=== PATIENT | male | born 1985 | race African-American/Black ===

== ENCOUNTER 2017-10-24 15:46 | Emergency (ER) | payer SELFPAY ==
[2017-10-24] MEDS ORDERED: ACETAMINOPHEN 325 MG TABLET PO ONE (16:25)
--- NOTE | 2017-10-24 16:29 | ER Document Report ---
HPI - HPI Patient complains to provider of: fever, sore throat, body aches, ear pain, fatigue, loose stool Onset: Other Onset/Duration: Persistent Quality of pain: Achy Pain Level: 4 Context: Patient presents emergency department with complaints of fever 48 hours ago sore throat left ear pain loose stool and fatigue. Patient reports symptoms started on . He had a fever of 101. He took some Tylenol liquid medication which seemed to dry mouth. He denies nausea vomiting reports loose stools. Denies productive cough. Reports body aches decreased appetite. Patient did not receive a flu shot this year. Patient has not taken anything today for his pain. Reports he works at [employer] but his and child are staying with his in-laws for now. Associated Symptoms: Fever, Headache, Sore throat Exacerbated by: Denies Relieved by: Denies Similar symptoms previously: No Recently seen / treated by doctor: No Past Medical History - General Information source: Patient - Social History Smoking Status: Current Every Day Smoker Cigarette use (# per day): Yes Chew tobacco use (# tins/day): No Frequency of alcohol use: None Drug Abuse: None Occupation: [employer] Lives with: Family Family History: Reviewed & Not Pertinent, Other - Both parents still living. No early heart disease Patient has suicidal ideation: No Patient has homicidal ideation: No - Medical History Medical History: Negative - Past Medical History Cardiac Medical History: Denies: Hx Hypercholesterolemia, Hx Hypertension Pulmonary Medical History: Denies: Hx Asthma Psychiatric Medical History: Reports: Hx Anxiety - Apparent history of panic. Does not see anybody for Surgical Hx: Negative Vertical Provider Document - CONSTITUTIONAL Agree With Documented VS: Yes Exam Limitations: No Limitations General Appearance: WD/WN, No Apparent Distress - INFECTION CONTROL TRAVEL OUTSIDE OF THE [place] IN LAST 30 DAYS: No - HEENT HEENT: Atraumatic, Normocephalic, Pharyngeal Exudate, Pharyngeal Erythema - clear voice, opens mouth wide. negative: Tympanic Membrane Red, Tympanic Membrane Bulging - NECK Neck: Normal Inspection, Supple. negative: Lymphadenopathy-Left, Lymphadenopathy-Right - RESPIRATORY Respiratory: Breath Sounds Normal, No Respiratory Distress O2 Sat by Pulse Oximetry: 97 - CARDIOVASCULAR Cardiovascular: Regular Rate - GI/ABDOMEN Gastrointestinal: Abdomen Soft, Abdomen Non-Tender - BACK Back: Normal Inspection - MUSCULOSKELETAL/EXTREMETIES Musculoskeletal/Extremeties: MAEW, FROM - NEURO Level of Consciousness: Awake, Alert, Appropriate Motor/Sensory: No Motor Deficit - DERM Integumentary: Warm, Dry, No Rash Course - Re-evaluation Re-evalutation: 10/24/17 17:12 Patient instructed on negative strep. throat culture pending Patient will be treated with Pen-Vee K for tonsil exudate. He was also instructed on importance of pushing fluids good handwashing follow-up with primary care provider. Patient is nontoxic looking swallowing drinking p.o. fluids without any problems and answers in a clear voice - Vital Signs Vital signs: Temp Pulse Resp BP Pulse Ox 98.8 F 78 20 119/84 97 10/24/17 15:52 10/24/17 15:52 10/24/17 15:52 10/24/17 15:52 10/24/17 15:52 Discharge - Discharge Clinical Impression: Sore throat, Flu-like symptoms, Tonsillar exudate Condition: Stable Disposition: HOME, SELF-CARE Instructions: Acetaminophen, Penicillin V K ([facility]) Additional Instructions: *You have been evaluated for a sore throat, tonsillar exudate, flu like symptoms *Take medication as prescribed *Warm salt water gargles and throat lozenges for comfort *Change toothbrush after two days of antibiotics *Do not let anyone drink/eat after you *Good hand washing *Follow-up with a primary care provider within one week for recheck *Return to ED for worsening condition change, needs Prescriptions: Penicillin V Potassium [Penicillin Vk 500 mg Tablet] 500 mg PO BID #20 tablet Forms: Return to Work
[2017-10-24 17:27] VITALS: BP 126/78
== END 2017-10-24 17:25 | disposition home or self-care (01) ==
LOC: ER 15:46
DX: J02.9 Acute pharyngitis, unspecified (principal); R50.9 Fever, unspecified; H92.02 Otalgia, left ear; R53.83 Other fatigue; R19.4 Change in bowel habit; R63.0 Anorexia; R51 Headache; F17.210 Nicotine dependence, cigarettes, uncomplicated
CPT/HCPCS: 87070; 87077; 87880; 99283

== ENCOUNTER 2018-07-20 18:09 | Emergency (ER) | payer SELFPAY ==
[2018-07-20] MEDS ORDERED: LIDOCAINE 2% VISCOUS SOLN 20 ML UDCUP PO ONE (19:00)
[2018-07-20] MEDS ORDERED: DEXAMETHASONE CONC 1 MG/ML SOLN PO ONE (19:00)
--- NOTE | 2018-07-20 19:05 | ER Document Report ---
ED General - General Chief Complaint: Diarrhea Stated Complaint: FATIGUE, SORE THROAT, TROUBLE URINATING Time Seen by Provider: 07/20/18 18:54 Notes: Patient is a 33-year-old male that presents to the emergency department for chief complaint of sore throat and diarrhea. Patient states she has been having sore throat and painful swallowing over the last 3 days, has had associated loose stools and diarrhea, no blood in the stool. He had no nausea or vomiting. He states his been difficult to stay hydrated. He noted also that he had difficulty starting a stream of urine, but did not note any burning or blood in the urine or penile discharge. He reports previously to this he was rather healthy, denies taking any home medications. He did note a slight temperature at home, but does not recall the number. He states his has had some similar symptoms, he is also had an associated cough. Past Medical History: Denies chronic medical conditions Past Surgical History: Denies surgical history Social History: Admits to smoking cigarettes, denies alcohol or drug use Family History: Reviewed and noncontributory for presenting illness Allergies: Reviewed, see documented allergy list. REVIEW OF SYSTEMS: Unless otherwise stated in this report the patient's positive and negative responses for review of systems for constitutional, eyes, ENT, cardiovascular, respiratory, gastrointestinal, neurological, genitourinary, musculoskeletal, and integumentary systems and related systems to the presenting problem are either as stated in the HPI or were not pertinent or were negative for the symptoms and/or complaints related to the presenting medical problem. PHYSICAL EXAMINATION: Vital signs reviewed, nursing noted reviewed. GENERAL: Well-appearing, well-nourished and in no acute distress. HEAD: Atraumatic, normocephalic. EYES: Eyes appear normal, extraocular movements intact, sclera anicteric, conjunctiva are normal. ENT: nares patent, mucous membranes are moist, mild erythema of the posterior pharynx, normal-appearing tonsils, no exudates NECK: Normal range of motion, supple without lymphadenopathy LUNGS: Breath sounds clear to auscultation bilaterally and equal. No wheezes rales or rhonchi. HEART: Regular rate and rhythm without murmurs ABDOMEN: Soft, nontender, normoactive bowel sounds. No rebound, guarding, or rigidity. No masses appreciated. EXTREMITIES: Nontender, good range of motion, no pitting or edema. NEUROLOGICAL: No focal neurological deficits. Moves all extremities spontaneously Motor and sensory grossly intact on exam. PSYCH: Normal mood, normal affect. SKIN: Warm, Dry, normal turgor, no rashes or lesions noted on exposed skin TRAVEL OUTSIDE OF THE [place] IN LAST 30 DAYS: No - Related Data Allergies/Adverse Reactions: No Known Allergies Allergy (Verified 07/20/18 18:10) Past Medical History - Social History Smoking Status: Current Every Day Smoker Chew tobacco use (# tins/day): No Drug Abuse: None Family History: Reviewed & Not Pertinent, Other - Both parents still living. No early heart disease Patient has suicidal ideation: No Patient has homicidal ideation: No - Past Medical History Cardiac Medical History: Denies: Hx Hypercholesterolemia, Hx Hypertension Pulmonary Medical History: Denies: Hx Asthma Renal/ Medical History: Denies: Hx Peritoneal Dialysis Psychiatric Medical History: Reports: Hx Anxiety - Apparent history of panic. Does not see anybody for Physical Exam - Vital signs Vitals: Temp Pulse Resp BP Pulse Ox 98.6 F 90 14 134/78 H 97 07/20/18 18:32 07/20/18 18:32 07/20/18 18:32 07/20/18 18:32 07/20/18 18:32 Course - Re-evaluation Re-evalutation: Patient seen and examined vital signs reviewed. Laboratory data and imaging were ordered as appropriate for the patient's presenting symptoms and complaint, with consideration of any critical or life threatening conditions that may be associated with their obtained history and exam as noted above. Patient was treated with p.o. Decadron, and viscous lidocaine gargle and swallow Results were reviewed when available and demonstrated urinalysis did demonstrate leukocyte esterase, in the urine, and rapid strep was negative The patient was re-evaluated and was improved and stable Evaluation was most consistent with acute pharyngitis, urinary tract infection will place the patient on Keflex for 7 days, advised to follow-up with urology given that he is a male with what looks like a urinary tract infection, and advised we will follow-up on results for strep culture. Patient agreeable and discharged. Results were discussed with the patient at this point, after careful consideration I feel that that patient can be discharged from the emergency department, the patient was educated treatments and reasons to return to the emergency department based on their presumed diagnosis as noted above, they were advised to followup with a primary care physician in 2-3 days. Patient was agreeable to plan of care. *Note is created using voice recognition software and may contain spelling, syntax or grammatical errors. Laboratory 07/20/18 07/20/18 19:01 19:01 Urine Color [place]A Urine Appearance SLIGHTLY-CLOUDY Urine pH 6.0 Ur Specific [place] 1.029 Urine Protein 100 H Urine Glucose (UA) NEGATIVE Urine Ketones TRACE H Urine Blood NEGATIVE Urine Nitrite NEGATIVE Urine Bilirubin NEGATIVE Urine Urobilinogen 4.0 H Ur Leukocyte Esterase MODERATE H Urine WBC (Auto) 65 Urine RBC (Auto) 1 Squamous Epi Cells Auto <1 Urine Mucus (Auto) MANY Urine Ascorbic Acid 40 H Group A Strep Rapid NEGATIVE - Vital Signs Vital signs: Temp Pulse Resp BP Pulse Ox 98.0 F 74 14 133/81 H 99 07/20/18 20:52 07/20/18 20:52 07/20/18 18:32 07/20/18 20:52 07/20/18 20:52 - Laboratory Laboratory results interpreted by me: 07/20/18 19:01 Urine Protein 100 H Urine Ketones TRACE H Urine Urobilinogen 4.0 H Ur Leukocyte Esterase MODERATE H Urine Ascorbic Acid 40 H Discharge - Discharge Clinical Impression: Pharyngitis Qualifiers: Pharyngitis/tonsillitis etiology: unspecified etiology Qualified Code(s): J02.9 - Acute pharyngitis, unspecified UTI (urinary tract infection) Qualifiers: Urinary tract infection type: site unspecified Hematuria presence: without hematuria Qualified Code(s): N39.0 - Urinary tract infection, site not specified Condition: Stable Disposition: HOME, SELF-CARE Instructions: Cephalexin ([facility]), Urinary Tract Infection ([facility]) Additional Instructions: Please return to the emergency department if you have any worsening, or concern of your symptoms. Please return to the emergency department if you develop chest pain, difficulty breathing, severe abdominal pain, or ongoing vomiting. Please follow-up with your primary care physician in 2-3 days and any other recommended physicians. If prescribed, take all medications as directed. If you have any questions or concerns do not hesitate to return the emergency department for evaluation. Prescriptions: Cephalexin Monohydrate [Keflex 500 mg Capsule] 500 mg PO BID 5 Days #14 capsule Referrals: MEG CLEMENT MD [NO LOCAL MD] - Follow up in 3-5 days (urology) JERAMY KESSLER MD [ACTIVE STAFF] - Follow up in 3-5 days (or your primary care. )
[2018-07-20 19:32] LABS: APPEARANCE,URINE SLIGHTLY-CLOUDY; BILIRUBIN,URINE NEGATIVE (NEGATIVE); COLOR,URINE AMBER; GLUCOSE, URINE NEGATIVE (NEGATIVE); KETONES,URINE TRACE mg/dL (NEGATIVE); LEUKOCYTE ESTERASE,URINE MODERATE (NEGATIVE); NITRITE,URINE NEGATIVE (NEGATIVE); PROTEIN,URINE 100 mg/dL (NEGATIVE); URINE SPECIFIC GRAVITY 1.029
[2018-07-20 20:57] VITALS: BP 133/81
== END 2018-07-20 20:52 | disposition home or self-care (01) ==
LOC: ER 18:09
DX: J02.9 Acute pharyngitis, unspecified (principal); N39.0 Urinary tract infection, site not specified; R19.7 Diarrhea, unspecified; F17.210 Nicotine dependence, cigarettes, uncomplicated; R05 Cough
CPT/HCPCS: 99284; 87070; 87880; 87077; 81001; J3490; J8540

== ENCOUNTER 2019-04-27 12:17 | Emergency (ER) | payer SELFPAY ==
[2019-04-27] MEDS ORDERED: NORMAL SALINE 1000 ML 1,000 ML IV ONE ×2 (12:52→13:30)
[2019-04-27 13:03] LABS: ABSOLUTE LYMPHOCYTES (AUTO) 0.8 10^3/uL (0.5-4.7); ABSOLUTE MONOCYTES (AUTO) 0.8 10^3/uL (0.1-1.4); ABSOLUTE NEUT (AUTO) 6.4 10^3/uL (1.7-8.2); BASOPHILS % (AUTO) 0.4 % (0-2); EOSINOPHILS % (AUTO) 0.1 % (0-6); HEMATOCRIT 38.6 % (37.9-51.0); HEMOGLOBIN 13.2 g/dL (13.5-17.0); LYMPHOCYTES % (AUTO) 9.6 % (13-45); MEAN CORPUSCULAR HEMOGLOBIN 30.3 pg (27.0-33.4); MEAN CORPUSCULAR HGB CONC 34.2 g/dL (32.0-36.0); MEAN CORPUSCULAR VOLUME 89 fl (80-97); MONOCYTES % (AUTO) 9.9 % (3-13); PLATELET COUNT 197 10^3/uL (150-450); RED BLOOD COUNT 4.35 10^6/uL (4.35-5.55); RED CELL DISTRIBUTION WIDTH 13.6 % (11.5-14.0); TOTAL CELLS COUNTED % (AUTO) 100 %; WHITE BLOOD COUNT 8.1 10^3/uL (4.0-10.5)
[2019-04-27 13:14] LABS: APPEARANCE,URINE CLEAR; BILIRUBIN,URINE NEGATIVE (NEGATIVE); COLOR,URINE YELLOW; GLUCOSE, URINE NEGATIVE (NEGATIVE); KETONES,URINE 80 mg/dL (NEGATIVE); LEUKOCYTE ESTERASE,URINE NEGATIVE (NEGATIVE); NITRITE,URINE NEGATIVE (NEGATIVE); PROTEIN,URINE 100 mg/dL (NEGATIVE); URINE SPECIFIC GRAVITY 1.025
[2019-04-27 13:24] LABS: ACETAMINOPHEN < 10 ug/mL (10-30); ALANINE AMINOTRANSFERASE 25 U/L (21-72); ALCOHOL < 10 mg/dL (NONE DETECTED); ALKALINE PHOSPHATASE 75 U/L (38-126); ANION GAP 7 (5-19); ASPARTATE AMINO TRANSFERASE 34 U/L (17-59); BILIRUBIN,DIRECT 0.3 mg/dL (0.0-0.4); BILIRUBIN,TOTAL 0.7 mg/dL (0.2-1.3); BLOOD UREA NITROGEN 13 mg/dL (7-20); CALCIUM 9.7 mg/dL (8.4-10.2); CARBON DIOXIDE 24 mmol/L (22-30); CHLORIDE 110 mmol/L (98-107); CREATINE KINASE 754 U/L (55-170); GLUCOSE 93 mg/dL (75-110); POTASSIUM 3.8 mmol/L (3.6-5.0); SALICYLATE < 1.0 mg/dL (2.0-20.0); TOTAL PROTEIN 7.1 g/dL (6.3-8.2)
[2019-04-27 13:28] LABS: URINE AMPHETAMINES SCREEN NEGATIVE; URINE BARBITURATES SCREEN NEGATIVE; URINE BENZODIAZEPINES SCREEN NEGATIVE; URINE COCAINE SCREEN NEGATIVE; URINE MARIJUANA (THC) SCREEN UNCONFIRMED POSITIVE; URINE METHADONE SCREEN NEGATIVE; URINE PHENCYCLIDINE SCREEN NEGATIVE
--- NOTE | 2019-04-27 13:29 | ER Document Report ---
Entered by SIMBA GIRON SCRIBE 04/27/19 1251 Acting as scribe for:SASHA PAUL MD ED General <ROSHAN PEPPER - Last Filed: 04/27/19 16:40> - General Mode of Arrival: Medic Information source: Patient, Emergency Med Personnel, H Records TRAVEL OUTSIDE OF THE [place] IN LAST 30 DAYS: No <SASHA PAUL - Last Filed: 04/27/19 17:00> - General Chief Complaint: Psych Problem Stated Complaint: POSSIBLE SYNCOPE Time Seen by Provider: 04/27/19 12:42 Primary Care Provider: [facility] [Outside] - Follow up as needed Notes: This 34-year-old male patient brought to emergency room by EMS for dehydration. The patient was seen in the emergency room last night about 10:30 PM for a groin abscess that was incised and drained. He was discharged about 1:00 in the morning. He is currently going through divorce and is homeless. He [place] in [facility] where he slept until about 5 AM. He got up and began walking all over [place], which is what he does sometimes to relieve stress or to get away from stressful situations. By history he allegedly had 2 syncopal episodes. A bystander saw what was happening and called 911. Patient initially argued with EMS, and refused transport. When he walked off he had another syncopal episode, and then they picked him up and brought him to the emergency room. He was given 1 L of normal saline by EMS in route. At this time he has a saline lock in his left antecubital fossa. He does admit that he considered self-harm and was trying to kill himself through dehydration. (SMIBA GIRON) This 34-year-old male patient brought to emergency room by EMS for dehydration. The patient was seen in the emergency room last night about 10:30 PM for a groin abscess that was incised and drained. He was discharged about 1:00 in the morning. He is currently going through divorce and is homeless. He went home to the park in the [place] where he slept until about 5 AM. He got up and began walking all over [place], which is what he does sometimes to relieve stress or to get away from stressful situations. By history he allegedly had 2 syncopal episodes. A bystander saw what was happening and called 911. Patient initially argued with EMS, and refused transport. When he walked off he had another syncopal episode, and then they picked him up and brought him to the emergency room. He was given 1 L of normal saline by EMS in route. At this time he has a saline lock in his left antecubital fossa. He does admit that he considered self-harm and was trying to kill himself through dehydration. (SASHA PAUL) - Related Data Allergies/Adverse Reactions: No Known Allergies Allergy (Verified 07/20/18 18:10) Past Medical History - General Information source: Patient, Emergency Med Personnel, [facility] Records - Social History Smoking Status: Current Every Day Smoker Cigarette use (# per day): Yes - 1 PPD Chew tobacco use (# tins/day): No Smoking Education Provided: No Frequency of alcohol use: Occasional Drug Abuse: Marijuana Occupation: [id number] Lives with: Homeless Family History: Reviewed & Not Pertinent, Other - Both parents still living. No early heart disease - Medical History Medical History: Negative Psychiatric Medical History: Reports: Hx Anxiety - Occasional panic episodes. Surgical Hx: Negative <SASHA PAUL - Last Filed: 04/27/19 17:00> Review of Systems - Review of Systems Constitutional: See HPI, Other - dehydrated EENT: No symptoms reported Cardiovascular: See HPI, Syncope Respiratory: No symptoms reported Gastrointestinal: No symptoms reported Genitourinary: No symptoms reported Male Genitourinary: No symptoms reported Musculoskeletal: No symptoms reported Skin: No symptoms reported Hematologic/Lymphatic: No symptoms reported Neurological/Psychological: No symptoms reported -: Yes All other systems reviewed and negative <SASHA PAUL - Last Filed: 04/27/19 17:00> Physical Exam <SASHA PAUL - Last Filed: 04/27/19 17:00> - Vital signs Vitals: Resp Pulse Ox 13 97 04/27/19 12:32 04/27/19 12:32 - Notes Notes: Physical Exam: General: Alert, withholds information but does answer with repeated questioning. HEENT: Normocephalic. Atraumatic. PERRL. Extraocular movements intact. Oropharynx clear. Very dry mucous membranes. Neck: Supple. Non-tender. Respiratory: No respiratory distress. Clear and equal breath sounds bilaterally. Cardiovascular: Regular rate and rhythm. Abdominal: Normal Inspection. Non-tender. No distension. Normal Bowel Sounds. Back: Non-tender. No deformity or step off. Extremities: Moves all four extremities. Upper extremities: Normal inspection. Normal ROM. Lower extremities: Normal inspection. No edema. Normal ROM. Neurological: Normal cognition. AAOx4. Normal speech. Psychological: Flat affect. Depressed. Skin: Warm. Dry. Normal color. (SIMBA GIRON) Physical Exam: General: Alert, withholds information but does answer with repeated questioning. HEENT: Normocephalic. Atraumatic. PERRL. Extraocular movements intact. Oropharynx clear. Very dry mucous membranes. Neck: Supple. Non-tender. Respiratory: No respiratory distress. Clear and equal breath sounds bilaterally. Cardiovascular: Regular rate and rhythm. Abdominal: Normal Inspection. Non-tender. No distension. Normal Bowel Sounds. Back: Non-tender. No deformity or step off. Extremities: Moves all four extremities. Upper extremities: Normal inspection. Normal ROM. Lower extremities: Normal inspection. No edema. Normal ROM. Neurological: Normal cognition. AAOx4. Normal speech. Psychological: Flat affect. Depressed. Skin: Warm. Dry. Normal color. (SASHA PAUL) Course - Laboratory Result Diagrams: 04/27/19 12:43 04/27/19 12:43 <ROSHAN PEPPER - Last Filed: 04/27/19 16:40> - Laboratory Result Diagrams: 04/27/19 12:43 04/27/19 12:43 <SASHA PAUL - Last Filed: 04/27/19 17:00> - Re-evaluation Re-evalutation: 04/27/19 15:04 Patient does have some rhabdomyolysis. He has had 3 L of normal saline. At this time he is medically cleared for psychiatric management of his depression and suicidal ideation. (SASHA PAUL) - Vital Signs Vital signs: Temp Pulse Resp BP Pulse Ox 17 108/65 98 04/27/19 15:01 04/27/19 15:00 04/27/19 15:01 - Laboratory Laboratory results interpreted by me: 04/27/19 04/27/19 04/27/19 12:43 12:43 12:45 Hgb 13.2 L Seg Neutrophils % 80.0 H Lymphocytes % 9.6 L Chloride 110 H Magnesium 1.5 L Creatine Kinase 754 H Urine Protein 100 H Urine Ketones 80 H Urine Blood MODERATE H Urine Urobilinogen 2.0 H Salicylates < 1.0 L Acetaminophen < 10 L Critical Care Note - Critical Care Note Total time excluding time spent on procedures (mins): 30 <SASHA PAUL - Last Filed: 04/27/19 17:00> Discharge <ROSHAN PEPPER - Last Filed: 04/27/19 16:40> <SASHA PAUL - Last Filed: 04/27/19 17:00> - Discharge Clinical Impression: Exertional rhabdomyolysis, Dehydration, Suicidal ideation Depression Qualifiers: Depression Type: unspecified Qualified Code(s): F32.9 - Major depressive disorder, single episode, unspecified Condition: Stable Disposition: HOME, SELF-CARE Additional Instructions: You have been evaluated both medical and behavioral health teams and been deemed appropriate for discharge. Please follow-up with outpatient mental health services; you have been provided local resource list including mobile crisis. AT ANY TIME, IF YOUR SYMPTOMS CHANGE SIGNIFICANTLY OR WORSEN OR YOU DEVELOP NEW SYMPTOMS, RETURN TO THE EMERGENCY DEPARTMENT IMMEDIATELY FOR RE-EVALUATION. Your lab work shows that you suffered from some muscle breakdown from becoming dehydrated and do so much exercising. This is called rhabdomyolysis. It is very important that you drink lots of water and other fluids throughout the day and in the evening for at least the next 2 to 3 days. RETURN TO THE EMERGENCY ROOM IF ANY NEW OR WORSENING SYMPTOMS. Referrals: [facility] [Outside] - Follow up as needed Scribe Attestation: 04/27/19 13:33 I personally performed the services described in the documentation, reviewed and edited the documentation which was dictated to the scribe in my presence, and it accurately records my words and actions. (SASHA PAUL) I personally performed the services described in the documentation, reviewed and edited the documentation which was dictated to the scribe in my presence, and it accurately records my words and actions.
[2019-04-27 17:11] VITALS: BP 117/102
--- NOTE | 2019-04-28 09:34 | EKG REPORT ---
SEVERITY:- NORMAL ECG - SINUS RHYTHM : Confirmed by: Susan Ortiz MD 27-Apr-2019 21:29:11
== END 2019-04-27 17:11 | disposition home or self-care (01) ==
LOC: ER 12:17
DX: T14.91XA Suicide attempt, initial encounter (principal); E86.0 Dehydration; X83.8XXA Intentional self-harm by other specified means, initial encounter; M62.82 Rhabdomyolysis; F32.9 Major depressive disorder, single episode, unspecified; R55 Syncope and collapse; Z98.890 Other specified postprocedural states; Z59.0 Homelessness; Z63.5 Disruption of family by separation and divorce; F17.210 Nicotine dependence, cigarettes, uncomplicated; F12.10 Cannabis abuse, uncomplicated
CPT/HCPCS: 93005; 99291; 96360; 96361; 36415; 82962; 80307 ×4; 82550; 83735; 84443; 85025; 80053; 81001; 93010; J7030

== ENCOUNTER 2019-09-06 12:57 | Emergency (ER) | payer SELFPAY ==
--- NOTE | 2019-09-06 13:37 | ER Document Report ---
ED Medical Screen (RME) - General Chief Complaint: Bloody Stools Stated Complaint: BLOOD IN STOOL AND URINE, NAUSEA Time Seen by Provider: 09/06/19 13:32 Mode of Arrival: Ambulatory Notes: 34-year-old male presented to ED for intermittent bloody stools x2-week with difficulty urine laden times a week with bloody urine. He has had general body aches since the last 2 weeks. He does have upper abdominal pain x2 weeks and is vomited x1 today. His last bowel movement was 12 9 which was yesterday. He states his stool yesterday was hard like little pellets. Patient is alert oriented respirations regular nonlabored speaking in full sentences. I have greeted and performed a rapid initial assessment of this patient. A comprehensive ED assessment and evaluation of the patient, analysis of test results and completion of medical decision making process will be conducted by an additional ED providers. TRAVEL OUTSIDE OF THE [place] IN LAST 30 DAYS: No - Related Data Allergies/Adverse Reactions: No Known Allergies Allergy (Verified 09/06/19 13:30) Past Medical History - Past Medical History Cardiac Medical History: Denies: Hx Hypercholesterolemia, Hx Hypertension Pulmonary Medical History: Denies: Hx Asthma Renal/ Medical History: Denies: Hx Peritoneal Dialysis Psychiatric Medical History: Reports: Hx Anxiety - Occasional panic episodes. Physical Exam - Vital signs Vitals: Temp Pulse Resp BP Pulse Ox 98.3 F 75 16 123/68 98 09/06/19 13:24 09/06/19 13:24 09/06/19 13:24 09/06/19 13:24 09/06/19 13:24 Course - Vital Signs Vital signs: Temp Pulse Resp BP Pulse Ox 98.3 F 75 16 123/68 98 09/06/19 13:24 09/06/19 13:24 09/06/19 13:24 09/06/19 13:24 09/06/19 13:24
[2019-09-06] MEDS ORDERED: NORMAL SALINE 1000 ML 1,000 ML IV ONE (13:40)
[2019-09-06 14:14] LABS: APPEARANCE,URINE SLIGHTLY-CLOUDY; BILIRUBIN,URINE NEGATIVE (NEGATIVE); COLOR,URINE YELLOW; GLUCOSE, URINE NEGATIVE (NEGATIVE); KETONES,URINE NEGATIVE (NEGATIVE); PROTEIN,URINE NEGATIVE (NEGATIVE); URINE SPECIFIC GRAVITY 1.019; UROBILINOGEN,URINE NEGATIVE mg/dL (<2.0)
--- NOTE | 2019-09-06 14:15 | RADIOLOGY REPORT (SQ) ---
EXAM DESCRIPTION: KUB/ABDOMEN (SINGLE VIEW) COMPLETED DATE/TIME: 09/06/2019 2:04 pm REASON FOR STUDY: abdominal pain hard stools COMPARISON: None. NUMBER OF VIEWS: One view. TECHNIQUE: Supine radiographic image of the abdomen acquired. LIMITATIONS: None. FINDINGS: BOWEL GAS PATTERN: Normal bowel gas pattern. No dilated loops. CALCIFICATIONS: No suspicious calcifications. SOFT TISSUES: No gross mass or suggestion of organomegaly. HARDWARE: None in the abdomen. BONES: No acute fracture. No worrisome bone lesions. OTHER: No other significant finding. IMPRESSION: NO RADIOGRAPHIC EVIDENCE FOR ACUTE ABDOMINAL DISEASE. TECHNICAL DOCUMENTATION: JOB ID: [id number]- All Rights Reserved Reading location - IP/workstation name: [email or web address]
[2019-09-06 14:48] LABS: ABSOLUTE EOSINOPHILS # (AUTO) 0.1 10^3/uL (0.0-0.6); ABSOLUTE LYMPHOCYTES (AUTO) 1.4 10^3/uL (0.5-4.7); ABSOLUTE MONOCYTES (AUTO) 0.3 10^3/uL (0.1-1.4); ABSOLUTE NEUT (AUTO) 2.2 10^3/uL (1.7-8.2); BASOPHILS % (AUTO) 0.7 % (0-2); EOSINOPHILS % (AUTO) 3.1 % (0-6); HEMATOCRIT 41.5 % (37.9-51.0); HEMOGLOBIN 14.2 g/dL (13.5-17.0); LYMPHOCYTES % (AUTO) 34.8 % (13-45); MEAN CORPUSCULAR HEMOGLOBIN 30.2 pg (27.0-33.4); MEAN CORPUSCULAR HGB CONC 34.1 g/dL (32.0-36.0); MEAN CORPUSCULAR VOLUME 88 fl (80-97); MONOCYTES % (AUTO) 7.2 % (3-13); PLATELET COUNT 195 10^3/uL (150-450); RED CELL DISTRIBUTION WIDTH 15.2 % (11.5-14.0); SEGMENTED NEUTROPHILS % (AUTO) 54.2 % (42-78); TOTAL CELLS COUNTED % (AUTO) 100 %
[2019-09-06 15:07] LABS: ALBUMIN 4.5 g/dL (3.5-5.0); ALKALINE PHOSPHATASE 53 U/L (38-126); ANION GAP 12 (5-19); ASPARTATE AMINO TRANSFERASE 25 U/L (17-59); BILIRUBIN,DIRECT 0.1 mg/dL (0.0-0.4); BILIRUBIN,TOTAL 0.4 mg/dL (0.2-1.3); BLOOD UREA NITROGEN 12 mg/dL (7-20); CALCIUM 9.9 mg/dL (8.4-10.2); CARBON DIOXIDE 29 mmol/L (22-30); CHLORIDE 100 mmol/L (98-107); GLUCOSE 94 mg/dL (75-110); POTASSIUM 4.6 mmol/L (3.6-5.0); TOTAL PROTEIN 8.3 g/dL (6.3-8.2)
[2019-09-06] MEDS ORDERED: CEFTRIAXONE 1 GM/D5W RTU 1 GM/50 ML RTUPB IV ONE (15:28)
[2019-09-06] MEDS ORDERED: AZITHROMYCIN 250 MG TABLET PO ONE (15:29)
--- NOTE | 2019-09-06 15:43 | ER Document Report ---
ED GI/ - General Chief Complaint: Abdominal Pain Stated Complaint: BLOOD IN STOOL AND URINE, NAUSEA Time Seen by Provider: 09/06/19 13:32 Mode of Arrival: Ambulatory Notes: 34-year-old healthy male presents to the emergency department with chief complaint blood in his urine and in his stool. Patient states he has been having issues for the past 1 to 2 weeks and noticed some bright red blood in the toilet after a bowel movement yesterday. Patient then noted today that he tried to urinate, it was difficult to micturate, and he saw blood in his urine. No fevers or chills, no flank pain, not currently sexually active with his . Patient states that he did have a bowel movement yesterday and they were "little pellets" indicating that he is constipated. Does have some epigastric pain, no nausea or vomiting. TRAVEL OUTSIDE OF THE [place] IN LAST 30 DAYS: No - Related Data Allergies/Adverse Reactions: No Known Allergies Allergy (Verified 09/06/19 13:30) Past Medical History - Social History Smoking Status: Current Every Day Smoker Chew tobacco use (# tins/day): No Frequency of alcohol use: None Drug Abuse: None Family History: Reviewed & Not Pertinent, Other - Both parents still living. No early heart disease Patient has suicidal ideation: No Patient has homicidal ideation: No - Past Medical History Cardiac Medical History: Denies: Hx Hypercholesterolemia, Hx Hypertension Pulmonary Medical History: Denies: Hx Asthma Renal/ Medical History: Denies: Hx Peritoneal Dialysis Psychiatric Medical History: Reports: Hx Anxiety - Occasional panic episodes. Review of Systems - Review of Systems Constitutional: See HPI EENT: No symptoms reported Cardiovascular: No symptoms reported Respiratory: No symptoms reported Gastrointestinal: See HPI Genitourinary: See HPI Male Genitourinary: See HPI Musculoskeletal: See HPI Skin: No symptoms reported Hematologic/Lymphatic: No symptoms reported Neurological/Psychological: No symptoms reported Physical Exam - Vital signs Vitals: Temp Pulse Resp BP Pulse Ox 98.3 F 75 16 123/68 98 09/06/19 13:24 09/06/19 13:24 09/06/19 13:24 09/06/19 13:24 09/06/19 13:24 - Notes Notes: PHYSICAL EXAMINATION: Reviewed vital signs and charting by RN GENERAL: Alert, interacts well. No acute distress. HEAD: Normocephalic, atraumatic. EYES: Pupils equal and round. Extraocular movements intact. ENT: Oral mucosa moist, tongue midline. NECK: Full range of motion. Trachea midline. LUNGS: Clear to auscultation bilaterally, no wheezes, rales, or rhonchi. No respiratory distress. HEART: Regular rate and rhythm. No murmur ABDOMEN: soft, non-tender. No distention. Bowel sounds present EXTREMITIES: Moves all 4 extremities spontaneously. No edema, No cyanosis. PSYCH: Normal affect, normal mood. SKIN: Warm, dry, normal turgor. No rashes or lesions noted. Course - Re-evaluation Re-evalutation: 09/06/19 15:45 Well-appearing and nontoxic. KUB done which does not show any evidence of air- fluid levels but did show a moderate amount of stool not impacted in the rectal vault. Stool guaiac completed and was negative for blood. Blood work all w ithin normal limits. Urinalysis remarkable for large leuk esterase and 122 WBCs. Will treat patient for a urinary tract infection. Am going to cover him with a gram of Rocephin, a azithromycin 1000 mg, and will give him a prescription for Keflex 500 mg 2 times per day for 1 week. Differential di agnosis does include GI bleed versus internal hemorrhoids versus gastritis. I do suspect that it is internal hemorrhoids as he saw bright red blood in the toilet. I have given patient strict return precautions, he agrees with plan, he is stable for discharge. - Vital Signs Vital signs: Temp Pulse Resp BP Pulse Ox 98.3 F 75 16 123/68 98 09/06/19 13:31 09/06/19 13:24 09/06/19 13:31 09/06/19 13:24 09/06/19 13:31 - Laboratory Result Diagrams: 09/06/19 14:30 09/06/19 14:30 Laboratory results interpreted by me: 09/06/19 09/06/19 09/06/19 13:48 14:30 14:30 RDW 15.2 H Total Protein 8.3 H Leukocyte Esterase Rfl LARGE H Discharge - Discharge Clinical Impression: Rectal bleeding Urinary tract infection Qualifiers: Urinary tract infection type: acute cystitis Hematuria presence: with hematuria Qualified Code(s): N30.01 - Acute cystitis with hematuria Condition: Good Disposition: HOME, SELF-CARE Additional Instructions: Your urine shows findings consistent with a urinary tract infection. Please take all the antibiotics as directed even if your symptoms have improved. Please follow-up with your primary care physician as needed. Return to emergency room if you develop fever >101F, persistent vomiting, become lethargic, have severe pain in your sides, or any other symptoms that are concerning to you. Also, it is unclear why you are having rectal bleeding but the Hemoccult testing was negative which does not indicate a GI bleed. It is possible that you had a hemorrhoid from straining because the x-ray did show that you had a large amount of stool in your colon. Please go buy some [id number] MiraLAX and take it as directed on the bottle. Please return to the emergency department if you have significant amounts of blood in your stool, you have severe abdominal pain, intractable nausea or vomiting, or any other concerning symptoms. Prescriptions: Cephalexin Monohydrate [Keflex 500 mg Capsule] 500 mg PO BID 7 Days #14 capsule
[2019-09-06 16:25] VITALS: BP 122/72
== END 2019-09-06 16:24 | disposition home or self-care (01) ==
LOC: ER 12:57
DX: N30.01 Acute cystitis with hematuria (principal); R19.5 Other fecal abnormalities; R10.9 Unspecified abdominal pain; F17.200 Nicotine dependence, unspecified, uncomplicated
CPT/HCPCS: 99283; 96361; 96365; 86900; 86901; 36415; 87086; 86850; 83690; 85025; 80053; 81001; 74018; J7030; J0696

== ENCOUNTER 2020-08-15 21:11 | Emergency (ER) | payer SELFPAY ==
[2020-08-15] MEDS ORDERED: TAMSULOSIN HCL 0.4 MG CAP.SR.24H PO ONE (23:11)
[2020-08-15] MEDS ORDERED: NORMAL SALINE 1000 ML 1,000 ML IV ONE (23:13)
[2020-08-15] MEDS ORDERED: IBUPROFEN 800 MG TABLET PO ONE (23:13)
--- NOTE | 2020-08-15 23:15 | ER Document Report ---
ED Medical Screen (RME) - General Chief Complaint: Possible Kidney Stone Stated Complaint: FLANK PAIN,PAINFUL URINATION,BLOOD IN URINE Time Seen by Provider: 08/15/20 23:09 Mode of Arrival: Ambulatory Information source: Patient Notes: 35-year-old male presented to ED for 3 weeks of bilateral flank pain. He states he thought it was just a UTI until 3 days ago he pushed something out of his penis to look like a stone. He states he got Azo and the pain got much worse and then tonight he got an erection and it felt like he was passing razor blades to his penis. He states he does smoke a pack a day does not drink or do any drugs. I have treated him with Azo and ibuprofen as he did not want Toradol in the pit area. I have ordered him some IV fluids for soon as he gets to the room. Have ordered blood urine and CT scan. I have greeted and performed a rapid initial assessment of this patient. A comprehensive ED assessment and evaluation of the patient, analysis of test results and completion of medical decision making process will be conducted by an additional ED providers. TRAVEL OUTSIDE OF THE [place] IN LAST 30 DAYS: No - Related Data Allergies/Adverse Reactions: No Known Allergies Allergy (Verified 09/06/19 13:30) Home Medications: none Past Medical History - Social History Chew tobacco use (# tins/day): No Frequency of alcohol use: None Drug Abuse: None - Past Medical History Cardiac Medical History: Denies: Hx Hypercholesterolemia, Hx Hypertension Pulmonary Medical History: Denies: Hx Asthma Renal/ Medical History: Denies: Hx Peritoneal Dialysis Psychiatric Medical History: Reports: Hx Anxiety - Occasional panic episodes. Physical Exam - Vital signs Vitals: Temp Pulse Resp BP Pulse Ox 98.3 F 73 16 123/68 97 08/15/20 21:31 08/15/20 21:31 08/15/20 21:31 08/15/20 21:31 08/15/20 21:31 Course - Vital Signs Vital signs: Temp Pulse Resp BP Pulse Ox 98.3 F 73 16 123/68 97 08/15/20 21:31 08/15/20 21:31 08/15/20 21:31 08/15/20 21:31 08/15/20 21:31
[2020-08-15 23:45] LABS: ABSOLUTE EOSINOPHILS # (AUTO) 0.2 10^3/uL (0.0-0.6); ABSOLUTE MONOCYTES (AUTO) 0.5 10^3/uL (0.1-1.4); ABSOLUTE NEUT (AUTO) 2.4 10^3/uL (1.7-8.2); BASOPHILS % (AUTO) 0.6 % (0-2); EOSINOPHILS % (AUTO) 3.6 % (0-6); HEMATOCRIT 40.8 % (37.9-51.0); HEMOGLOBIN 13.8 g/dL (13.5-17.0); LYMPHOCYTES % (AUTO) 38.8 % (13-45); MEAN CORPUSCULAR HEMOGLOBIN 31.1 pg (27.0-33.4); MEAN CORPUSCULAR HGB CONC 33.8 g/dL (32.0-36.0); MEAN CORPUSCULAR VOLUME 92 fl (80-97); MONOCYTES % (AUTO) 9.8 % (3-13); PLATELET COUNT 181 10^3/uL (150-450); RED BLOOD COUNT 4.43 10^6/uL (4.35-5.55); SEGMENTED NEUTROPHILS % (AUTO) 47.2 % (42-78); TOTAL CELLS COUNTED % (AUTO) 100 %; WHITE BLOOD COUNT 5.1 10^3/uL (4.0-10.5)
[2020-08-15 23:46] LABS: ALBUMIN 4.4 g/dL (3.5-5.0); ALKALINE PHOSPHATASE 44 U/L (38-126); ANION GAP 5 (5-19); ASPARTATE AMINO TRANSFERASE 22 U/L (17-59); BILIRUBIN,TOTAL 0.3 mg/dL (0.2-1.3); BLOOD UREA NITROGEN 14 mg/dL (7-20); CARBON DIOXIDE 31 mmol/L (22-30); CHLORIDE 103 mmol/L (98-107); GLUCOSE 99 mg/dL (75-110); POTASSIUM 4.8 mmol/L (3.6-5.0); TOTAL PROTEIN 7.4 g/dL (6.3-8.2)
[2020-08-15 23:48] LABS: APPEARANCE,URINE CLOUDY; BILIRUBIN,URINE NEGATIVE (NEGATIVE); COLOR,URINE YELLOW; GLUCOSE, URINE NEGATIVE (NEGATIVE); KETONES,URINE NEGATIVE (NEGATIVE); LEUKOCYTE ESTERASE,URINE LARGE (NEGATIVE); NITRITE,URINE NEGATIVE (NEGATIVE); PROTEIN,URINE NEGATIVE (NEGATIVE); URINE SPECIFIC GRAVITY 1.025
--- NOTE | 2020-08-15 23:52 | RADIOLOGY REPORT (SQ) ---
CLINICAL HISTORY: B flank pain, HEMATURIA COMPARISON: None. 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 FINDINGS: Lower lungs are clear. Abdomen: The liver is normal in appearance. There is no biliary dilatation. Gallbladder is normal in appearance. The pancreas and spleen are normal in appearance. The adrenal glands and kidneys are unremarkable. Abdominal aorta is normal in course and caliber without aneurysm. There is no free air. There is no retroperitoneal adenopathy. Pelvis: There is no bowel obstruction. Urinary bladder is unremarkable. There is no free fluid. Appendix is normal. Skeleton: There are no acute osseous findings. No suspicious bony lesions. IMPRESSION: No acute process
[2020-08-16 01:27] VITALS: BP 120/68
[2020-08-16] MEDS ORDERED: CEFTRIAXONE INJ 1000 MG VIAL IM ONE (02:03)
[2020-08-16] MEDS ORDERED: PHENAZOPYRIDINE HCL 200 MG TABLET PO ONE (02:03)
[2020-08-16] MEDS ORDERED: AZITHROMYCIN 1 GM SUSP PACKET PO ONE (02:03)
[2020-08-16] MEDS ORDERED: LIDOCAINE 1% INJ (10 MG/ML) 10 ML MDV INJ ONE (02:03)
--- NOTE | 2020-08-16 02:04 | ER Document Report ---
ED GI/ - General Chief Complaint: Possible Kidney Stone Stated Complaint: FLANK PAIN,PAINFUL URINATION,BLOOD IN URINE Time Seen by Provider: 08/15/20 23:09 Mode of Arrival: Ambulatory Notes: CHIEF COMPLAINT: Dysuria for 2 to 3 weeks HPI: 35-year-old male presenting for dysuria for 2 weeks. Patient states it feels like he is peeing razors. Denies testicular pain. States that he has had some discomfort in the bilateral low back region. No fever nausea or vomiting. Took [id number] Azo in the last 2 days with worsening of his symptoms. Denies penile discharge. ROS: See HPI - all other systems were reviewed and are otherwise negative Constitutional: no fever GI: no vomiting, no diarrhea, no abdominal pain : Positive dysuria Integumentary: no rash Allergy: no hives MEDICATIONS: I agree with the patient medications as charted by the RN. ALLERGIES: I agree with the allergies as charted by the RN. PAST MEDICAL HISTORY/PAST SURGICAL HISTORY: Reviewed and agree as charted by RN. SOCIAL HISTORY: Reviewed and agree as charted by RN. FAMILY HISTORY: No significant familial comorbid conditions directly related to patient complaint EXAM: Reviewed vital signs as charted by RN. CONSTITUTIONAL: Alert and oriented and responds appropriately to questions. Well-appearing; well-nourished, mild distress secondary to pain HEAD: Normocephalic; atraumatic EYES: Conjunctivae clear, sclerae non-icteric ENT: normal nose; no rhinorrhea; moist mucous membranes NECK: Supple without meningismus CARD: symmetric distal pulses RESP: Normal chest excursion without splinting or tachypnea ABD/GI:; non-distended, nontender to palpation : Circumcised male. Bilateral testicles nontender. No palpable masses. No visible or palpable inguinal or scrotal hernias. No visible urethral discharge. No visible herpetic lesions. No lymphadenopathy in the groin. BACK: The back appears normal and is non-tender to palpation, there is no CVA tenderness EXT: Normal ROM in all joints; no cyanosis, no effusions, no edema SKIN: Normal color for age and race; warm; dry; good turgor; no acute lesions noted NEURO: Moves all extremities equally; Motor and sensory function intact PSYCH: The patient's mood and manner are appropriate. Grooming and personal hygiene are appropriate. MDM: 35-year-old male presenting for dysuria. Appears to have a fairly significant UTI or cystitis. Will add urine chlamydia and gonorrhea. Initial screening lab work and CT imaging by triage process did not show acute findings other than urinary infection. TRAVEL OUTSIDE OF THE [place] IN LAST 30 DAYS: No - Related Data Allergies/Adverse Reactions: No Known Allergies Allergy (Verified 09/06/19 13:30) Home Medications: none Past Medical History - General Information source: Patient - Social History Smoking Status: Current Every Day Smoker Chew tobacco use (# tins/day): No Frequency of alcohol use: None Drug Abuse: None Family History: Reviewed & Not Pertinent, Other - Both parents still living. No early heart disease Patient has homicidal ideation: No - Past Medical History Cardiac Medical History: Denies: Hx Hypercholesterolemia, Hx Hypertension Pulmonary Medical History: Denies: Hx Asthma Renal/ Medical History: Denies: Hx Peritoneal Dialysis Psychiatric Medical History: Reports: Hx Anxiety - Occasional panic episodes. Physical Exam - Vital signs Vitals: Temp Pulse Resp BP Pulse Ox 98.3 F 73 16 123/68 97 08/15/20 21:31 08/15/20 21:31 08/15/20 21:31 08/15/20 21:31 08/15/20 21:31 Course - Vital Signs Vital signs: Temp Pulse Resp BP Pulse Ox 98.3 F 60 16 120/68 100 08/15/20 21:31 08/16/20 01:26 08/15/20 21:31 08/16/20 01:26 08/16/20 01:26 - Laboratory Result Diagrams: 08/15/20 23:18 08/15/20 23:18 Laboratory results interpreted by me: 08/15/20 08/15/20 23:18 23:18 Carbon Dioxide 31 H Urine Urobilinogen 2.0 H Ur Leukocyte Esterase LARGE H Urine Ascorbic Acid 40 H Discharge - Discharge Clinical Impression: Acute cystitis Qualifiers: Hematuria presence: without hematuria Qualified Code(s): N30.00 - Acute cystitis without hematuria Condition: Stable Disposition: HOME, SELF-CARE Additional Instructions: Take the antibiotics as prescribed. Take the Pyridium to treat the discomfort. No sexual intercourse for 10 days. Follow-up with primary care provider or urology for further evaluation and treatment if symptoms persist call for appointment. Return for onset of fever greater than 101, onset of abdominal or flank pain. Prescriptions: Ciprofloxacin HCl [Cipro 500 mg Tablet] 500 mg PO BID #20 tablet Phenazopyridine HCl [Pyridium 100 Mg Tablet] 100 mg PO TID #9 tablet Referrals: MATHEUS RAMIREZ MD [NO LOCAL MD] - Follow up as needed
== END 2020-08-16 02:28 | disposition home or self-care (01) ==
LOC: ER 21:11
DX: N30.00 Acute cystitis without hematuria (principal); F17.200 Nicotine dependence, unspecified, uncomplicated
CPT/HCPCS: 99285; 96372; 36415; 87086; 85025; 87088; 80053; 81001; 74176; Q0144; J3490; J0696